=== PATIENT | male | born 1990 | race Caucasian/White ===

== ENCOUNTER 2019-04-26 14:38 | Emergency (ER) | payer MEDICAID ==
[~2019-04-26] VITALS: Ht 195.6 cm; Wt 95.7 kg
--- NOTE | 2019-04-26 14:40 | NUR ---
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 TO ER BED 11, HOOKED TO MONITOR, CHANGED TO DR BAY BOSS AT BEDSIDE
--- NOTE | 2019-04-26 14:47 | NUR ---
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 TO ER BED 11, HOOKED TO MONITOR, CHANGED TO GOWN, AWAITING MD VIZCAINO.
[2019-04-26] MEDS ORDERED: LORAZEPAM 1 MG TABLET ONE (14:53)
[2019-04-26] MEDS ORDERED: OLANZAPINE 5 MG TABLET ONE (14:54)
[2019-04-26 14:59] LABS: BASOPHILS % (AUTO) 0.3 % (0.0-2.0); EOSINOPHILS % (AUTO) 1.1 % (0.0-6.0); HEMATOCRIT 43 % (39-51); HEMOGLOBIN 14.9 g/dL (13.5-17.5); LYMPHOCYTES % (AUTO) 6.7 % (20.0-44.0); MEAN CORPUSCULAR HGB CONC 34 g/dl (31.0-36.0); MEAN CORPUSCULAR VOLUME 88 fL (80-96); MONOCYTES # (AUTO) 1.1 /CMM (0.1-1.30); NEUTROPHILS # (AUTO) 13.1 /CMM (1.8-8.9); NEUTROPHILS % (AUTO) 84.9 % (43.0-81.0); PLATELET COUNT (AUTO) 221 /CMM (150-450); RED BLOOD CELL COUNT(AUTO) 4.93 MIL/uL (4.5-6.0); WHITE BLOOD COUNT (AUTO) 15.4 K/uL (4.3-11.0)
[2019-04-26] MEDS ORDERED: LORAZEPAM 1 MG TABLET PO ONE (15:00)
[2019-04-26] MEDS ORDERED: OLANZAPINE 5 MG TABLET PO ONE (15:00)
[2019-04-26 15:05] LABS: CALCIUM, SERUM 8.5 mg/dL (8.5-10.1); CARBON DIOXIDE 27 mmol/L (21-32); CHLORIDE 102 mmol/L (98-107); CREATININE 1.1 mg/dL (0.6-1.3); GLUCOSE 133 mg/dL (74-106); POTASSIUM 3.4 mmol/L (3.5-5.1); SODIUM SERUM 139 mmol/L (136-145); UREA NITROGEN, BLOOD 12 mg/dL (7-18)
--- NOTE | 2019-04-26 15:08 | NUR ---
URINE SAMPLE SENT TO LAB
[2019-04-26 15:13] LABS: APPEARANCE,URINE Clear (CLEAR); BILIRUBIN,URINE Negative (NEGATIVE); BLOOD, URINE Small Ery/uL (NEGATIVE); COLOR,URINE Yellow (YELLOW); KETONES,URINE Negative (NEGATIVE); LEUKOCYTE ESTERASE ,URINE Negative (NEGATIVE); NITRITE, URINE Negative (NEGATIVE); PROTEIN,URINE Negative (NEGATIVE); UGLUCOSE Negative (NEGATIVE); UROBILINOGEN,URINE 0.2 EU/dL (0.2)
[2019-04-26 15:20] LABS: ALANINE AMINOTRANSFERASE 27 U/L (12-78); ALBUMIN 3.8 g/dL (3.4-5.0); ALCOHOL, BLOOD < 3 mg/dL (0-0); ALKALINE PHOSPHATASE 97 U/L (46-116); ASPARTATE AMINOTRANSFERASE 20 U/L (15-37); BILIRUBIN,DIRECT 0.1 mg/dL (0.0-0.2); BILIRUBIN,TOTAL 0.4 mg/dL (0.2-1.0); TOTAL PROTEIN, SERUM 7.6 g/dL (6.4-8.2)
[2019-04-26 15:21] LABS: ACETAMINOPHEN < 2 ug/ml (10-30); SALICYLATE 1.3 mg/dL (2.8-20.0)
[2019-04-26 15:24] LABS: BACTERIA,URINE Rare /HPF (None Seen); RBC,URINE 0-2 /HPF (0-2); SQUAMOUS EPITHELIAL CELL,UR None Seen /HPF (None Seen); WBC,URINE 0-2 /HPF (0-3)
[2019-04-26 16:15] VITALS: BP 127/74
--- NOTE | 2019-04-26 16:15 | NUR ---
Patient signed homeless waiver. Patient given written and verbal discharge instructions. Patient verbalizes understanding of instructions. Patient is ambulatory with steady gait. Refuses offer of alf placement. Patient given list of available shelters in surrounding area. Patient left department in proper clothing (shirt, shorts and shoes), left discharge papers and prescription in bed.
== END 2019-04-26 16:15 | disposition home or self-care (01) ==
LOC: EDBD 14:45 → ER 14:45
DX: F15.10 Other stimulant abuse, uncomplicated (principal); R44.0 Auditory hallucinations; Z59.0 Homelessness
CPT/HCPCS: 36415; 80048; 80076; 80305; 80307; 80329; 81001; 85025; 99283; G0480; 81000-TC

== ENCOUNTER 2020-11-03 15:01 | Emergency (ER) | payer OTHER ==
[~2020-11-03] VITALS: Ht 182.9 cm; Wt 81.6 kg
--- NOTE | 2020-11-03 15:11 | NUR ---
SEEN AND EXAMINED BY .
--- NOTE | 2020-11-03 15:12 | NUR ---
[facility] AND [employer] IN [place] TO ER BED 15. PT ALERT AND AWAKE. TAKING NON SENSE AND HYPERVERBAL. NOT IN RESP DSITRESS. PT IS SUSPECTED OF DRUG USE BUT [place] SUBSATNCE. WAS AT THE BEDSIDE FOR EVAL. ORDERS RECEIVED AND WILL CARRY OUT.
[2020-11-03] MEDS ORDERED: LORAZEPAM INJ 2 MG/ML VIAL ONE (15:19)
[2020-11-03] MEDS ORDERED: LORAZEPAM INJ 2 MG/ML VIAL IM ONE (15:30)
[2020-11-03 16:10] LABS: BASOPHILS # (AUTO) 0.1 /CMM (0.0-0.2); BASOPHILS % (AUTO) 0.9 % (0.0-2.0); HEMATOCRIT 39 % (39-51); HEMOGLOBIN 13.2 g/dL (13.5-17.5); LYMPHOCYTES # (AUTO) 1.2 /CMM (0.8-4.8); LYMPHOCYTES % (AUTO) 15.8 % (20.0-44.0); MEAN CORPUSCULAR HGB CONC 34 g/dl (31.0-36.0); MEAN CORPUSCULAR VOLUME 87 fL (80-96); MONOCYTES # (AUTO) 0.5 /CMM (0.1-1.30); MONOCYTES % (AUTO) 7.1 % (2.0-12.0); NEUTROPHILS # (AUTO) 5.7 /CMM (1.8-8.9); NEUTROPHILS % (AUTO) 73.2 % (43.0-81.0); PLATELET COUNT (AUTO) 269 /CMM (150-450); RED BLOOD CELL COUNT(AUTO) 4.49 MIL/uL (4.5-6.0); WHITE BLOOD COUNT (AUTO) 7.7 K/uL (4.3-11.0)
--- NOTE | 2020-11-03 16:30 | NUR ---
Fountain Dispenser Consult: Fountain Dispenser consult was requested by ER staff due to pts overdose. Pt is a 30 year old male patient who presented in the Emergency Room on 11/03/20. Pt appeared to be disoriented and disorganized. Pt was in restraints and was speaking incoherently. Pts speech was pressured and tangential. SW was unable to evaluate the pt at this time and will make another attempt at a later time.
[2020-11-03 16:31] LABS: BILIRUBIN,URINE Negative (NEGATIVE); COLOR,URINE YELLOW (YELLOW); LEUKOCYTE ESTERASE ,URINE Negative (NEGATIVE); NITRITE, URINE Negative (NEGATIVE); PH,URINE 6.5 (5.0-8.0); PROTEIN,URINE 30 mg/dl (NEGATIVE); UGLUCOSE Negative (NEGATIVE)
[2020-11-03 16:38] LABS: BACTERIA,URINE Rare /HPF (None Seen); RBC,URINE NONE SEEN /HPF (0-2); SQUAMOUS EPITHELIAL CELL,UR Few /HPF (None Seen); WBC,URINE NONE SEEN /HPF (0-3)
[2020-11-03 16:46] LABS: CALCIUM, SERUM 8.6 mg/dL (8.5-10.1); CARBON DIOXIDE 26 mmol/L (21-32); CHLORIDE 103 mmol/L (98-107); GLUCOSE 123 mg/dL (74-106); POTASSIUM 4.1 mmol/L (3.5-5.1); SODIUM SERUM 138 mmol/L (136-145); UREA NITROGEN, BLOOD 23 mg/dL (7-18)
[2020-11-03 16:51] LABS: ALANINE AMINOTRANSFERASE 63 U/L (12-78); ALBUMIN 3.3 g/dL (3.4-5.0); ALCOHOL, BLOOD < 3 mg/dL (0-0); ALKALINE PHOSPHATASE 111 U/L (46-116); ASPARTATE AMINOTRANSFERASE 39 U/L (15-37); BILIRUBIN,DIRECT 0.1 mg/dL (0.0-0.2); BILIRUBIN,TOTAL 0.5 mg/dL (0.2-1.0); TOTAL PROTEIN, SERUM 7.1 g/dL (6.4-8.2)
[2020-11-03 16:52] LABS: ACETAMINOPHEN < 2 ug/ml (10-30)
--- NOTE | 2020-11-03 20:12 | NUR ---
TRACYID SWABBED, SENT TO LAB.
[2020-11-03] MEDS ORDERED: OLANZAPINE 10 MG VIAL IM ONE ×2 (21:13→21:30)
--- NOTE | 2020-11-03 21:17 | NUR ---
PT RESTING IN BED COMFORTABLY. VSS.
--- NOTE | 2020-11-04 01:25 | NUR ---
pt asleep, vss.
--- NOTE | 2020-11-04 06:04 | NUR ---
Patient discharged to home in stable condition. Written and verbal after care instructions given. Patient verbalizes understanding of instruction. Pt ambulated out of ED. vss.
[2020-11-04 06:05] VITALS: BP 117/69
== END 2020-11-04 06:05 | disposition home or self-care (01) ==
LOC: ER 15:11
DX: F15.10 Other stimulant abuse, uncomplicated (principal); R03.0 Elevated blood-pressure reading, without diagnosis of hypertension; R00.0 Tachycardia, unspecified; Z20.822 Contact with and (suspected) exposure to COVID-19
CPT/HCPCS: 36415; 80048; 80076; 80299; 80307; 80320; 81001; 85025; 87426; 96372 ×2; 99285; C9803; J2060; J3490; G0480